=== PATIENT | female | born 1945 | race Caucasian/White ===

== ENCOUNTER → 2017-04-09 16:11 | Outpatient (CLI) | payer MEDICARE, MEDICAID ==
[2015-03-10 15:51] VITALS: BMI 21.5
[~2017-04-09 16:11] MED LIST: BAYER CHEWABLE81 MG PO; BETAPACE 80 MG80 MG PO; CEFTIN500 MG PO; GLUCOPHAGE500 MG PO; HYDROCHLOROTHIA25 MG PO; STERAPRED DS 1010 MG PO; ZESTRIL10 MG PO; ZOFRAN4 MG PO
== END ==
LOC: D.LABREF 16:11
DX: R82.90 Unspecified abnormal findings in urine (principal)

== ENCOUNTER → 2017-04-21 14:50 | Outpatient (CLI) | payer MEDICARE ==
[2015-03-10 15:51] VITALS: BMI 21.5
== END | disposition home or self-care (01) ==
LOC: D.CT 14:50
DX: R31.9 Hematuria, unspecified (principal); F17.200 Nicotine dependence, unspecified, uncomplicated

== ENCOUNTER 2017-04-28 05:30 | Day surgery (SDC) | payer MEDICARE ==
[2015-03-10 15:51] VITALS: Ht 167.6 cm; Wt 64.0 kg
[2017-04-25 16:26] LABS: HEMATOCRIT 37.4 % (36.0-48.0); HEMOGLOBIN 12.4 g/dL (12-16); MCH 30.6 pg (26.0-34.0); MCHC 33.2 g/dL (31.0-37.0); MCV 92.3 fL (80.0-100.0); MEAN PLATELET VOLUME 10.4 fL (7.4-10.4); RBC 4.05 10x6/uL (4.00-5.40); RDW 13.2 % (11.5-14.5); WBC 7.5 10x3/uL (4.8-10.8)
[2017-04-25 16:42] LABS: ANION GAP 13.4 mmol/L (8-16); CALCIUM 8.7 mg/dL (8.5-10.1); CARBON DIOXIDE 27.5 mmol/L (21.0-32.0); POTASSIUM - SERUM 3.9 mmol/L (3.5-5.1)
[~2017-04-28] VITALS: Ht 167.6 cm; Wt 64.0 kg
[~2017-04-28 05:30] MED LIST changes: +CYMBALTA20 MG PO; +HYDROCODONE-APA1 TAB PO; +NORVASC2.5 MG PO
[2017-04-28] MEDS ORDERED: MOTRIN PM CAPL1 EACH PO (06:29)
[2017-04-28 06:30] VITALS: BP 149/72; BMI 22.8
--- NOTE | 2017-04-28 09:28 | NUR ---
0815-RECD TO ROOM, ALERT. IV PATENT. DR SARGENT HERE TO REPORT TO PATIENT AND DAUGHTER. 0820-FULL LIQUIDS SERVED. 0845-IV D/C. VOIDED AND DRESSED, 0850-DISCHARGE INSTRUCTIONS REVIEWED. 0900-D/C HOME.
--- NOTE | 2017-04-29 12:46 | OP ---
PATIENT NAME: ALEX ROSENBAUM MEDICAL RECORD: [id number] :47 LOCATION:D.OPS ADMISSION DATE: SURGEON: WADE SARGENT MD DATE OF OPERATION: 04/28/2017 SURGEON: Wade Sargent MD ANESTHESIA: MAC by Gee Moy CRNA. PREOPERATIVE DIAGNOSES: Microhematuria, stress urinary incontinence, anxiety. FINDINGS: Single ureteral orifices, inflammation of the bladder trigone, no bladder tumors. Trabeculated bladder. Urethral mucosal prolapse. PROCEDURE: Cystoscopy. SPECIMENS: None. ESTIMATED BLOOD LOSS: None. CLINICAL HISTORY: This is a 71-year-old female, who has been smoking 1 pack per day since age 18. She was found by her family physician to have microhematuria. She had a CT scan, which showed normal kidneys with no hydronephrosis and no renal masses. There are no stones in the kidney either. There is a significant amount of gallstones in the gallbladder, which may be calcified. She is tender in the right upper quadrant also. She was also found on physical examination to have stress urinary incontinence. She is 5, P4, A1. She comes now to have cystoscopy done. She did not wish to have that done in the office as she has anxiety and she did not wish to feel the procedure being done. 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 DESCRIPTION OF PROCEDURE: The patient was given IV sedation. She was placed in the dorsal lithotomy position and prepped and draped. A 30-degree lens was used with a 21-Turkish cystoscope. Going into the bladder, she has a urethral mucosal prolapse. This was mild. She has single ureteral orifices. There is significant degree of inflammation in the trigone. No bladder tumors were seen. The bladder was mildly trabeculated. The bladder was then emptied and the patient was brought to the recovery room. TRANSINT:[id number] Voice Confirmation ID: [id number] DOCUMENT ID: [id number] WADE SARGENT MD at 1246 CC: [id number] DICTATION DATE: 04/28/17 0824 MANAGER PAPER: 04/28/17 1643 [facility] 04/28/17 [place] [address]
== END 2017-04-28 09:00 | disposition home or self-care (01) ==
LOC: D.OPS 05:30 → D.PAN 07:30 → D.OPS 09:00
PROVIDERS: Anesthesiology
DX: N39.3 Stress incontinence (female) (male) (principal); R31.29 Other microscopic hematuria; N32.89 Other specified disorders of bladder; N81.0 Urethrocele; N30.31 Trigonitis with hematuria; F41.9 Anxiety disorder, unspecified; K80.20 Calculus of gallbladder without cholecystitis without obstruction; F17.210 Nicotine dependence, cigarettes, uncomplicated; Z01.812 Encounter for preprocedural laboratory examination

== ENCOUNTER 2017-05-21 05:59 | Day surgery (SDC) | payer MEDICARE ==
[2017-05-19 10:03] LABS: HEMATOCRIT 36.2 % (36.0-48.0); MCH 30.6 pg (26.0-34.0); MCHC 33.1 g/dL (31.0-37.0); MCV 92.3 fL (80.0-100.0); MEAN PLATELET VOLUME 10.8 fL (7.4-10.4); RBC 3.92 10x6/uL (4.00-5.40); RDW 13.5 % (11.5-14.5); WBC 6.3 10x3/uL (4.8-10.8)
[2017-05-19 10:32] LABS: CALC OSMOLALITY 274 mosm/kg (275-300); CALCIUM 8.9 mg/dL (8.5-10.1); CARBON DIOXIDE 26.7 mmol/L (21.0-32.0); CHLORIDE - SERUM 103 mmol/L (98-107); CREATININE - SERUM 0.8 mg/dL (0.6-1.3); GLUCOSE 119 mg/dL (74-106); POTASSIUM - SERUM 4.4 mmol/L (3.5-5.1); SODIUM 138 mmol/L (136-145); UREA NITROGEN 7 mg/dL (7-18); eGFR NON AFRICAN AMERICAN 75 mL/min (90-120)
[~2017-05-21] VITALS: Ht 167.6 cm; Wt 65.8 kg
[~2017-05-21 05:59] MED LIST changes: +MOTRIN PM CAPL1 EACH PO
[2017-05-21 08:26] VITALS: BP 155/56; Ht 167.6 cm; Wt 65.8 kg
[2017-05-21] MEDS ORDERED: OXYCODONE HCL5 MG PO (12:30)
== END 2017-05-21 14:48 | disposition home or self-care (01) ==
LOC: D.OPS 05:59 → D.PAN 09:00 → D.OPS 09:10 → D.PAN 05-26 09:45
PROVIDERS: Anesthesiology
DX: K80.20 Calculus of gallbladder without cholecystitis without obstruction (principal); I10 Essential (primary) hypertension; E11.9 Type 2 diabetes mellitus without complications; F17.200 Nicotine dependence, unspecified, uncomplicated; Z99.81 Dependence on supplemental oxygen; Z01.812 Encounter for preprocedural laboratory examination

== ENCOUNTER 2018-04-08 13:06 | Inpatient (IN) | payer MEDICARE, MEDICAID ==
[~2018-04-08] VITALS: Ht 167.6 cm; Wt 57.1 kg
--- NOTE | ~2018-04-08 | CN ---
PATIENT NAME:ALEX RIDDLE MEDICAL RECORD: [id number] : 47 LOCATION:D. D.2137 ADMIT DATE: 04/09/18 ACCOUNT: [id number] CONSULTING PHYSICIAN: SEAN WARD MD REFERRING PHYSICIAN: FLOR ROBERT MD DATE OF CONSULTATION: CONSULT REQUESTING PHYSICIAN: Jack Adrian MD REASON FOR CONSULTATION: Pulmonary nodule. HISTORY OF PRESENT ILLNESS: Ms. Riddle is a 72-year-old female. She was smoking just until last week with a history of COPD and chronic hypoxic respiratory failure. The patient was sent to the hospital for generalized lethargy and weakness. She found out to be hyponatremic as well as chest radiograph showed some pulmonary nodules confirmed by the CTA of the chest. She was also having loss of appetite and occasional vomiting and diarrhea. REVIEW OF SYSTEMS: Mainly in the history of present illness. PAST MEDICAL HISTORY: 1. COPD. 2. Chronic hypoxic respiratory failure. 3. Hypertension. 4. Tobacco dependence syndrome. 5. Gastroesophageal reflux disease. 6. Coronary artery disease. PAST SURGICAL HISTORY: 1. CABG in 2008. 2. Oophorectomy. 3. History of cystoscopy. ALLERGIES: SHE IS ALLERGIC TO SULFA, TRIMETHOPRIM, AND TIZANIDINE. PRESENT MEDICATIONS: [employer] is reviewed. PERSONAL AND SOCIAL HISTORY: The patient was a smoker until last week, almost a pack a day. She is also drinking occasionally. FAMILY HISTORY: Noncontributory. PHYSICAL EXAMINATION: GENERAL: Now, the patient is lying comfortably, but she is not in acute respiratory distress. VITAL SIGNS: The blood pressure is 167/77, pulse is 88, respirations 20, temperature 98.1, SpO2 97% on 1 liter nasal cannula. HEENT: Conjunctivae are pink. Sclerae are not icteric. NECK: Supple, no JVD. CHEST: The chest excursion is minimal on both sides. There is wheeze on forceful expiration. No crackles. HEART: Rhythm regular, normal sound, no murmur. ABDOMEN: Soft, bowel sounds present. No hepatosplenomegaly. RECTAL: Deferred. EXTREMITIES: No cyanosis, no clubbing, no pedal edema. CONSULT REPORT [id number] ALEX RIDDLE SKIN: Warm, normal turgor. CENTRAL NERVOUS SYSTEM: The patient is awake and alert. There is no obvious cranial nerve abnormality. The gait was not tested. LABORATORY DATA: CBC: WBC 10.1, hemoglobin 12.2, hematocrit 34.7, the platelet count 260. Chemistry: Sodium 124 on admission, potassium 4.6, BUN is 6, and creatinine is 0.5. IMAGING: CTA of the chest: There was no pulmonary embolism. There is bilateral patchy pulmonary nodules. There are biapical pleural thickening. IMPRESSION: 1. Multiple pulmonary nodules, differential diagnoses include malignant versus infectious process versus sarcoidosis. 2. Chronic hypoxic respiratory failure. 3. Hyponatremia. 4. Tobacco dependence syndrome. 5. Gastroesophageal reflux disease. RECOMMENDATION: 1. Start on Brovana/budesonide nebulizer, albuterol/ipratropium nebulizer. 2. Nicotine patch if required. 3. Check for fungal serology, urine histoplasma antigen, S level, LUIS, rheumatoid factor, gold QuantiFERON test. The patient will need outpatient PET scan to rule out any malignant process. Dr. Adrian, thank you for involving me in the care of Ms. Riddle. TRANSINT:[id number] Voice Confirmation ID: [id number] DOCUMENT ID: [id number] SEAN WARD MD at 1806 CC: [id number] DICTATION DATE: 04/10/18 1615 DATABASE SUPPORT: 04/10/182102 [facility] 04/15/18 [address] [place] [address]
[~2018-04-08 13:06] MED LIST changes: +OXYCODONE HCL5 MG PO
[2018-04-08 16:18] LABS: BASOPHILS 0.1 % (0-2); EOSINOPHILS 0.4 % (0-7); HEMATOCRIT 37.4 % (36.0-48.0); HEMOGLOBIN 13.6 g/dL (12-16); IMMATURE GRANULOCYTES 0.3 % (0-5); LYMPHOCYTES 20.1 % (15-50); MCH 30.7 pg (26.0-34.0); MCHC 36.4 g/dL (31.0-37.0); MCV 84.4 fL (80.0-100.0); MEAN PLATELET VOLUME 9.8 fL (7.4-10.4); MONOCYTES 12.5 % (2-11); NEUTROPHILS 66.6 % (40-80); PLATELET COUNT 218 10x3/uL (130-400); RBC 4.43 10x6/uL (4.00-5.40); RDW 12.4 % (11.5-14.5); WBC 11.6 10x3/uL (4.8-10.8)
[2018-04-08 16:34] LABS: ALBUMIN 3.4 g/dL (3.4-5.0); ALKALINE PHOSPHATASE 59 U/L (46-116); ALT (SGPT) 14 U/L (10-68); CALC OSMOLALITY 249 mosm/kg (275-300); CALCIUM 9.1 mg/dL (8.5-10.1); CARBON DIOXIDE 28.6 mmol/L (21.0-32.0); CHLORIDE - SERUM 88 mmol/L (98-107); CREATININE - SERUM 0.7 mg/dL (0.6-1.3); GLUCOSE 131 mg/dL (74-106); MAGNESIUM - SERUM 1.6 mg/dL (1.8-2.4); POTASSIUM - SERUM 3.3 mmol/L (3.5-5.1); PROTEIN - SERUM 7.4 g/dL (6.4-8.2); SODIUM 124 mmol/L (136-145); UREA NITROGEN 7 mg/dL (7-18); eGFR NON AFRICAN AMERICAN 87 mL/min (90-120)
[2018-04-08 20:00] VITALS: BP 130/59
[2018-04-08 22:55] LABS: APPEARANCE CLEAR (CLEAR); BILIRUBIN NEGATIVE (NEGATIVE); COLOR YELLOW (YELLOW); GLUCOSE NEGATIVE (NEGATIVE); KETONE NEGATIVE (NEGATIVE); NITRITE NEGATIVE (NEGATIVE); PROTEIN NEGATIVE (NEGATIVE); UROBILINOGEN NORMAL (NORMAL)
[2018-04-09 00:41] LABS: CALC OSMOLALITY 256 mosm/kg (275-300); CALCIUM 8.4 mg/dL (8.5-10.1); CARBON DIOXIDE 30.5 mmol/L (21.0-32.0); CHLORIDE - SERUM 94 mmol/L (98-107); CREATININE - SERUM 0.6 mg/dL (0.6-1.3); GLUCOSE 101 mg/dL (74-106); POTASSIUM - SERUM 2.8 mmol/L (3.5-5.1); SODIUM 129 mmol/L (136-145); UREA NITROGEN 6 mg/dL (7-18); eGFR NON AFRICAN AMERICAN > 90 mL/min (90-120)
[2018-04-09 04:00] VITALS: BP 136/62
[2018-04-09 06:29] LABS: CALC OSMOLALITY 262 mosm/kg (275-300); CALCIUM 8.3 mg/dL (8.5-10.1); CARBON DIOXIDE 29.1 mmol/L (21.0-32.0); CHLORIDE - SERUM 96 mmol/L (98-107); CREATININE - SERUM 0.7 mg/dL (0.6-1.3); GLUCOSE 97 mg/dL (74-106); SODIUM 132 mmol/L (136-145); UREA NITROGEN 6 mg/dL (7-18); eGFR NON AFRICAN AMERICAN 87 mL/min (90-120)
[2018-04-09 06:30] LABS: POTASSIUM - SERUM 3.4 mmol/L (3.5-5.1)
[2018-04-09 08:35] VITALS: BP 125/61
[2018-04-09 11:42] VITALS: BP 115/50
[2018-04-09 20:00] VITALS: BP 132/55
[2018-04-10 01:51] VITALS: BP 152/59
[2018-04-10 02:54] VITALS: Ht 167.6 cm; Wt 57.1 kg
[2018-04-10 05:54] VITALS: BP 151/70
[2018-04-10 08:18] VITALS: BP 128/73
[2018-04-10 11:06] LABS: BASOPHILS 0.2 % (0-2); EOSINOPHILS 2.1 % (0-7); HEMATOCRIT 34.7 % (36.0-48.0); HEMOGLOBIN 12.2 g/dL (12-16); IMMATURE GRANULOCYTES 0.2 % (0-5); LYMPHOCYTES 22.5 % (15-50); MCH 30.8 pg (26.0-34.0); MCHC 35.2 g/dL (31.0-37.0); MEAN PLATELET VOLUME 10.4 fL (7.4-10.4); MONOCYTES 12.3 % (2-11); NEUTROPHILS 62.7 % (40-80); PLATELET COUNT 260 10x3/uL (130-400); RBC 3.96 10x6/uL (4.00-5.40); WBC 10.1 10x3/uL (4.8-10.8)
[2018-04-10 11:09] VITALS: BP 131/77
[2018-04-10 11:10] LABS: ALBUMIN 3.1 g/dL (3.4-5.0); ALKALINE PHOSPHATASE 53 U/L (46-116); ALT (SGPT) 15 U/L (10-68); BILIRUBIN - TOTAL 0.53 mg/dL (0.2-1.3); CALC OSMOLALITY 264 mosm/kg (275-300); CALCIUM 8.9 mg/dL (8.5-10.1); CHLORIDE - SERUM 97 mmol/L (98-107); GLUCOSE 127 mg/dL (74-106); MCV 87.6 fL (80.0-100.0); POTASSIUM - SERUM 4.6 mmol/L (3.5-5.1); PROTEIN - SERUM 6.4 g/dL (6.4-8.2); SODIUM 132 mmol/L (136-145); UREA NITROGEN 6 mg/dL (7-18)
[2018-04-10 11:14] LABS: CREATININE - SERUM 0.5 mg/dL (0.6-1.3); eGFR NON AFRICAN AMERICAN > 90 mL/min (90-120)
[2018-04-10 16:03] VITALS: BP 167/77
[2018-04-10 20:22] VITALS: BP 162/72
[2018-04-11 01:50] VITALS: BP 163/701
[2018-04-11 05:25] VITALS: BP 141/76
[2018-04-11 05:57] LABS: BASOPHILS 0.2 % (0-2); EOSINOPHILS 3.1 % (0-7); HEMATOCRIT 33.9 % (36.0-48.0); HEMOGLOBIN 11.9 g/dL (12-16); IMMATURE GRANULOCYTES 0.2 % (0-5); LYMPHOCYTES 22.1 % (15-50); MCH 30.1 pg (26.0-34.0); MCHC 35.1 g/dL (31.0-37.0); MEAN PLATELET VOLUME 9.9 fL (7.4-10.4); MONOCYTES 13.2 % (2-11); NEUTROPHILS 61.2 % (40-80); PLATELET COUNT 260 10x3/uL (130-400); RBC 3.96 10x6/uL (4.00-5.40); RDW 12.6 % (11.5-14.5); WBC 9.6 10x3/uL (4.8-10.8)
[2018-04-11 06:06] LABS: MCV 85.6 fL (80.0-100.0)
[2018-04-11 06:12] LABS: CALC OSMOLALITY 249 mosm/kg (275-300); CALCIUM 8.5 mg/dL (8.5-10.1); CARBON DIOXIDE 27.4 mmol/L (21.0-32.0); CHLORIDE - SERUM 91 mmol/L (98-107); CREATININE - SERUM 0.5 mg/dL (0.6-1.3); GLUCOSE 104 mg/dL (74-106); POTASSIUM - SERUM 4.7 mmol/L (3.5-5.1); SODIUM 125 mmol/L (136-145); eGFR NON AFRICAN AMERICAN > 90 mL/min (90-120)
[2018-04-11 06:15] LABS: UREA NITROGEN 8 mg/dL (7-18)
[2018-04-11 08:35] VITALS: BP 155/74
[2018-04-11 12:00] VITALS: BP 120/57
[2018-04-11 17:02] VITALS: BP 151/67
[2018-04-11 20:50] VITALS: BP 139/69
[2018-04-12 01:31] VITALS: BP 123/59
[2018-04-12 05:41] VITALS: BP 153/71
[2018-04-12 06:44] LABS: BASOPHILS 0.3 % (0-2); EOSINOPHILS 2.4 % (0-7); HEMATOCRIT 35.3 % (36.0-48.0); HEMOGLOBIN 12.6 g/dL (12-16); IMMATURE GRANULOCYTES 0.3 % (0-5); LYMPHOCYTES 21.4 % (15-50); MCH 30.3 pg (26.0-34.0); MCHC 35.7 g/dL (31.0-37.0); MCV 84.9 fL (80.0-100.0); MEAN PLATELET VOLUME 9.4 fL (7.4-10.4); MONOCYTES 16.9 % (2-11); NEUTROPHILS 58.7 % (40-80); PLATELET COUNT 261 10x3/uL (130-400); RBC 4.16 10x6/uL (4.00-5.40); RDW 12.7 % (11.5-14.5); WBC 10.7 10x3/uL (4.8-10.8)
[2018-04-12 06:54] LABS: CALC OSMOLALITY 243 mosm/kg (275-300); CALCIUM 8.8 mg/dL (8.5-10.1); CARBON DIOXIDE 25.7 mmol/L (21.0-32.0); CHLORIDE - SERUM 89 mmol/L (98-107); CREATININE - SERUM 0.6 mg/dL (0.6-1.3); GLUCOSE 115 mg/dL (74-106); POTASSIUM - SERUM 4.3 mmol/L (3.5-5.1); SODIUM 121 mmol/L (136-145); UREA NITROGEN 10 mg/dL (7-18); eGFR NON AFRICAN AMERICAN > 90 mL/min (90-120)
[2018-04-12 09:09] VITALS: BP 158/67
[2018-04-12 12:00] VITALS: BP 152/59
[2018-04-12 17:23] VITALS: BP 122/61
[2018-04-12 22:05] VITALS: BP 135/63
[2018-04-13 02:28] VITALS: BP 135/65
[2018-04-13 05:22] VITALS: BP 150/67
[2018-04-13 07:16] LABS: BASOPHILS 0.2 % (0-2); EOSINOPHILS 1.9 % (0-7); HEMATOCRIT 34.4 % (36.0-48.0); HEMOGLOBIN 12.3 g/dL (12-16); IMMATURE GRANULOCYTES 0.3 % (0-5); MCH 30.2 pg (26.0-34.0); MCHC 35.8 g/dL (31.0-37.0); MCV 84.5 fL (80.0-100.0); MEAN PLATELET VOLUME 9.8 fL (7.4-10.4); NEUTROPHILS 61.6 % (40-80); PLATELET COUNT 284 10x3/uL (130-400); RBC 4.07 10x6/uL (4.00-5.40); RDW 12.4 % (11.5-14.5)
[2018-04-13 07:28] LABS: CALC OSMOLALITY 238 mosm/kg (275-300); CALCIUM 8.8 mg/dL (8.5-10.1); CARBON DIOXIDE 26.4 mmol/L (21.0-32.0); CHLORIDE - SERUM 87 mmol/L (98-107); CREATININE - SERUM 0.5 mg/dL (0.6-1.3); GLUCOSE 113 mg/dL (74-106); POTASSIUM - SERUM 4.3 mmol/L (3.5-5.1); UREA NITROGEN 8 mg/dL (7-18); eGFR NON AFRICAN AMERICAN > 90 mL/min (90-120)
[2018-04-13 07:31] LABS: SODIUM 119 mmol/L (136-145)
[2018-04-13 08:20] VITALS: BP 168/95
[2018-04-13 11:24] VITALS: BP 113/60
[2018-04-13 16:10] VITALS: BP 116/71
[2018-04-13 20:00] VITALS: BP 131/58
[2018-04-14 06:52] LABS: HEMATOCRIT 32.2 % (36.0-48.0); HEMOGLOBIN 11.5 g/dL (12-16); MCH 30.7 pg (26.0-34.0); MCHC 35.7 g/dL (31.0-37.0); MCV 86.1 fL (80.0-100.0); MEAN PLATELET VOLUME 9.7 fL (7.4-10.4); PLATELET COUNT 264 10x3/uL (130-400); RBC 3.74 10x6/uL (4.00-5.40); RDW 12.6 % (11.5-14.5); WBC 8.3 10x3/uL (4.8-10.8)
[2018-04-14 07:05] LABS: CALC OSMOLALITY 255 mosm/kg (275-300); CALCIUM 8.8 mg/dL (8.5-10.1); CARBON DIOXIDE 26.9 mmol/L (21.0-32.0); CHLORIDE - SERUM 94 mmol/L (98-107); CREATININE - SERUM 0.6 mg/dL (0.6-1.3); GLUCOSE 92 mg/dL (74-106); POTASSIUM - SERUM 3.9 mmol/L (3.5-5.1); SODIUM 128 mmol/L (136-145); UREA NITROGEN 10 mg/dL (7-18); eGFR NON AFRICAN AMERICAN > 90 mL/min (90-120)
[2018-04-14 08:18] LABS: EOSINOPHILS 2 % (0-7); LYMPHOCYTES 20 % (15-50); MONOCYTES 22 % (2-11); NEUTROPHILS 54 % (40-80); PLATELET ESTIMATE NORMAL
[2018-04-14 08:35] VITALS: BP 139/75
[2018-04-14 10:12] LABS: ANGIOTENSIN CONVERTING ENZYME 43 U/L (14-82)
[2018-04-14 12:02] VITALS: BP 146/79
[2018-04-14 12:11] LABS: ANA REFLEX - DIRECT Negative (Negative)
[2018-04-14 15:20] LABS: ANCA - ANTIMYELOPEROXIDASE <9.0 U/mL (0.0-9.0); ANCA - ANTIPROTEINASE 3 <3.5 U/mL (0.0-3.5); ANCA - ATYPICAL <1:20 titer (Neg:<1:20); ANCA - CYTOPLASMIC <1:20 titer (Neg:<1:20); ANCA - PERINUCLEAR <1:20 titer (Neg:<1:20)
[2018-04-14 16:12] VITALS: BP 104/41
[2018-04-14 20:00] VITALS: BP 143/62
[2018-04-15] VITALS: BP 150/58
[2018-04-15 06:18] LABS: BASOPHILS 0.4 % (0-2); EOSINOPHILS 1.4 % (0-7); HEMATOCRIT 29.5 % (36.0-48.0); HEMOGLOBIN 10.2 g/dL (12-16); IMMATURE GRANULOCYTES 0.2 % (0-5); MCH 30.3 pg (26.0-34.0); MCHC 34.6 g/dL (31.0-37.0); MCV 87.5 fL (80.0-100.0); MEAN PLATELET VOLUME 9.4 fL (7.4-10.4); MONOCYTES 18.5 % (2-11); NEUTROPHILS 54.5 % (40-80); PLATELET COUNT 280 10x3/uL (130-400); RBC 3.37 10x6/uL (4.00-5.40); RDW 12.7 % (11.5-14.5); WBC 8.3 10x3/uL (4.8-10.8)
[2018-04-15 06:39] LABS: CALC OSMOLALITY 263 mosm/kg (275-300); CALCIUM 8.4 mg/dL (8.5-10.1); CARBON DIOXIDE 28.6 mmol/L (21.0-32.0); CHLORIDE - SERUM 97 mmol/L (98-107); CREATININE - SERUM 0.6 mg/dL (0.6-1.3); GLUCOSE 93 mg/dL (74-106); POTASSIUM - SERUM 3.6 mmol/L (3.5-5.1); SODIUM 132 mmol/L (136-145); UREA NITROGEN 10 mg/dL (7-18); eGFR NON AFRICAN AMERICAN > 90 mL/min (90-120)
[2018-04-15 08:22] VITALS: BP 110/75
[2018-04-15 12:09] VITALS: BP 101/42
[2018-04-15] MEDS ORDERED: THERMOTABS 1 GM1 GM PO (14:23)
[2018-04-15 16:16] VITALS: BP 135/59
[2018-04-16 18:10] LABS: FUNGAL - ASP FLAVUS Negative (Neg:<1:1); FUNGAL - ASP NIGER Negative (Neg:<1:1); FUNGAL - ASPER FUMIGATUS Negative (Neg:<1:1)
== END 2018-04-15 18:59 | disposition home or self-care (01) | DRG 640 ==
LOC: D.SDCHOLD 13:06 → D.M2 13:06 → OBSVTIME 13:06 → D.M2 13:06
PROVIDERS: Family Medicine; Internal Medicine Nephrology; Internal Medicine Pulmonary Disease
DX: E87.1 Hypo-osmolality and hyponatremia (principal); J18.9 Pneumonia, unspecified organism; I26.90 Septic pulmonary embolism without acute cor pulmonale; J44.1 Chronic obstructive pulmonary disease with (acute) exacerbation; J96.11 Chronic respiratory failure with hypoxia; C34.92 Malignant neoplasm of unspecified part of left bronchus or lung; C34.91 Malignant neoplasm of unspecified part of right bronchus or lung; E86.0 Dehydration; E87.6 Hypokalemia; F17.200 Nicotine dependence, unspecified, uncomplicated; E78.5 Hyperlipidemia, unspecified; E11.9 Type 2 diabetes mellitus without complications; I25.10 Atherosclerotic heart disease of native coronary artery without angina pectoris; K21.9 Gastro-esophageal reflux disease without esophagitis; I10 Essential (primary) hypertension; Z95.1 Presence of aortocoronary bypass graft

== ENCOUNTER → 2018-05-28 16:36 | Outpatient (CLI) | payer MEDICARE, MEDICAID ==
[~2018-05-28 16:36] MED LIST changes: +THERMOTABS 1 GM1 GM PO
== END | disposition home or self-care (01) ==
LOC: D.CT 10:00
DX: M25.511 Pain in right shoulder (principal)

== ENCOUNTER → 2018-08-20 13:58 | Outpatient (CLI) | payer MEDICARE, MEDICAID | END | disposition home or self-care (01) | LOC: D.RT 13:58 | DX: J44.9 Chronic obstructive pulmonary disease, unspecified (principal); R91.8 Other nonspecific abnormal finding of lung field ==

== ENCOUNTER → 2018-11-24 22:26 | Outpatient (CLI) | payer MEDICARE, MEDICAID | END | disposition home or self-care (01) | LOC: D.MAMMO 09-28 16:15 | DX: Z12.31 Encounter for screening mammogram for malignant neoplasm of breast (principal) ==

== ENCOUNTER 2019-05-28 16:57 | Observation (INO) | payer MEDICARE, MEDICAID ==
[~2019-05-28] VITALS: Ht 167.6 cm; Wt 60.3 kg
--- NOTE | 2019-05-28 17:27 | NUR ---
RCVD PT FROM OFFICE. ALERT AND ORIENTED. UP AD EARLE. NO C/O PAIN. NO S/S OF ACUTE DISTRESS NOTED. PT DENIES ANYTHING FURTHER. WILL CONTINUE TO MONITOR.
[2019-05-28 17:31] VITALS: BP 115/61
[2019-05-28 17:37] VITALS: BP 115/61; BMI 21.5
[2019-05-28 20:00] VITALS: BP 104/41
--- NOTE | 2019-05-28 22:00 | NUR ---
A&O, REPORTS PAIN IN BACK AND SHOULDER. 06/26. REPORTS SHE ALREADY FEELS BETTER AND THAT HER APPETITE HAS INCREASED SINCE BEING ADMITTED TO HOSPITAL. FSBS 173. WILL CONTINUE TO MONITOR.
[2019-05-28 23:38] LABS: APPEARANCE CLEAR (CLEAR); BILIRUBIN NEGATIVE (NEGATIVE); COLOR YELLOW (YELLOW); GLUCOSE NEGATIVE (NEGATIVE); KETONE NEGATIVE (NEGATIVE); NITRITE NEGATIVE (NEGATIVE); PROTEIN NEGATIVE (NEGATIVE); SPECIFIC GRAVITY 1.015 (1.005-1.020); UROBILINOGEN NORMAL (NORMAL)
[2019-05-29] VITALS: BP 95/44
--- NOTE | 2019-05-29 03:00 | NUR ---
I have reviewed this patient and I concur with the Shift Assessment completed by the Licensed Practical Nurse today this shift.
[2019-05-29 07:46] LABS: ALBUMIN 2.2 g/dL (3.4-5.0); ALKALINE PHOSPHATASE 63 U/L (46-116); ALT (SGPT) 29 U/L (10-68); BILIRUBIN - TOTAL 0.55 mg/dL (0.2-1.3); CALC OSMOLALITY 250 mosm/kg (275-300); CALCIUM 7.9 mg/dL (8.5-10.1); CARBON DIOXIDE 26.9 mmol/L (21.0-32.0); CHLORIDE - SERUM 91 mmol/L (98-107); CREATININE - SERUM 0.7 mg/dL (0.6-1.3); GLUCOSE 105 mg/dL (74-106); HEMATOCRIT 29.9 % (36.0-48.0); HEMOGLOBIN 10.5 g/dL (12-16); MAGNESIUM - SERUM 1.9 mg/dL (1.8-2.4); MCH 29.5 pg (26.0-34.0); MCHC 35.1 g/dL (31.0-37.0); PHOSPHOROUS 3.6 mg/dL (2.5-4.9); PLATELET COUNT 302 10x3/uL (130-400); POTASSIUM - SERUM 3.8 mmol/L (3.5-5.1); PROTEIN - SERUM 5.6 g/dL (6.4-8.2); RBC 3.56 10x6/uL (4.00-5.40); RDW 12.9 % (11.5-14.5); SODIUM 124 mmol/L (136-145); UREA NITROGEN 16 mg/dL (7-18); WBC 12.1 10x3/uL (4.8-10.8); eGFR NON AFRICAN AMERICAN 87 mL/min (90-120)
[2019-05-29 08:13] LABS: EOSINOPHILS 2 % (0-7); LYMPHOCYTES 34 % (15-50); MONOCYTES 8 % (2-11); NEUTROPHILS 53 % (40-80); PLATELET ESTIMATE NORMAL
[2019-05-29 08:19] VITALS: Ht 167.6 cm; Wt 60.3 kg
--- NOTE | 2019-05-29 08:20 | NUR ---
PT RESTING EYES CLOSED NO SIGNS OF DISTRESS NOTED, EASY RISE AND FALL OF CHEST WILL CONTINUE TO MONITOR CL IN REACH
[2019-05-29 08:26] VITALS: BP 120/53
[2019-05-29 12:46] VITALS: BP 101/41
--- NOTE | 2019-05-29 17:02 | NUR ---
I have reviewed this patient and I concur with the Shift Assessment completed by the Licensed Practical Nurse today this shift.
[2019-05-29 17:52] VITALS: BP 109/45
--- NOTE | 2019-05-29 19:30 | NUR ---
PT ALERT AND ORIENTED. UP WITH HEAD OF BED AT 40 DEGREE ANGLE. ROOM AIR AND O2 SAUTRATION 100%. PATIENT IS HARD OF HEARING. DENIES PAIN OR DISCOMFORT. RIGHT WRIST IV THAT FLUSHES WELL AND IS PATENT. INFUSING NS @ 100. HAS CALL LIGHT IN HAND. USES APPROPRIATELY. CPOC.
[2019-05-29 20:00] VITALS: BP 115/60
--- NOTE | 2019-05-30 02:55 | NUR ---
I have reviewed this patient and I concur with the Shift Assessment completed by the Licensed Practical Nurse today this shift.
[2019-05-30 04:00] VITALS: BP 107/75
--- NOTE | 2019-05-30 06:09 | NUR ---
PT ANGRY AND IRRITABLE. COMPLETE CHANGE FROM BEGINNING OF SHIFT. PT YELLING AND LOUD STATING THAT SHE DOESNT WANT ANYMORE MEDICINE AND SHE WANTS TO GO HOME. SHE SAID SHE DOESN'T HAVE PNEUMONIA ANYMORE AND THAT WHEN SHE DID THE FOOD ORDER DELIVERY RUNNER DIDN'T TREAT HER. STATED "THE NURSE PRACTITIONER SENT ME HOME FOR A WEEK AND I FELT LIKE I WAS DYING AND WISHED I WOULD !." PT CONTINUED TO GROW ANGRY AND UPSET. CALMED PATIENT DOWN AND TOLD HER TO JUST FINISH THE ROUND OF ANTIBIOTICS AND PATIENT STATED "IF YOU THINK IM STAYING HERE YOURE JUST BAD HER IM NOT FINISHING THESE DAMN THINGS." ATTEMPTED TO TRY TO CALM PATIENT DOWN AGAIN.
[2019-05-30 06:59] LABS: CALC OSMOLALITY 265 mosm/kg (275-300); CALCIUM 7.7 mg/dL (8.5-10.1); CARBON DIOXIDE 25.6 mmol/L (21.0-32.0); CHLORIDE - SERUM 99 mmol/L (98-107); CREATININE - SERUM 0.6 mg/dL (0.6-1.3); GLUCOSE 101 mg/dL (74-106); MAGNESIUM - SERUM 1.6 mg/dL (1.8-2.4); PHOSPHOROUS 3.3 mg/dL (2.5-4.9); POTASSIUM - SERUM 3.5 mmol/L (3.5-5.1); SODIUM 133 mmol/L (136-145); UREA NITROGEN 12 mg/dL (7-18); eGFR NON AFRICAN AMERICAN > 90 mL/min (90-120)
[2019-05-30 07:00] LABS: BASOPHILS 0.3 % (0-2); EOSINOPHILS 2.3 % (0-7); HEMATOCRIT 29.2 % (36.0-48.0); HEMOGLOBIN 10.2 g/dL (12-16); IMMATURE GRANULOCYTES 1.9 % (0-5); LYMPHOCYTES 17.8 % (15-50); MCH 29.8 pg (26.0-34.0); MCHC 34.9 g/dL (31.0-37.0); MCV 85.4 fL (80.0-100.0); MEAN PLATELET VOLUME 9.1 fL (7.4-10.4); MONOCYTES 19.9 % (2-11); NEUTROPHILS 57.8 % (40-80); PLATELET COUNT 313 10x3/uL (130-400); RBC 3.42 10x6/uL (4.00-5.40); RDW 13.4 % (11.5-14.5); WBC 10.6 10x3/uL (4.8-10.8)
--- NOTE | 2019-05-30 08:00 | NUR ---
PT RESING EYES CLOSED NO SIGNS OF DISTRESS NOTED, EASY RISE AND FALL OF CHEST WILL CONTINUE TO MONITOR CL IN REACH
[2019-05-30 09:10] VITALS: BP 144/58
--- NOTE | 2019-05-30 10:00 | NUR ---
SHADI WATKINS OFFERED PT A SHOWER AND PT STATES "IM NOT TAKING NO DAMN SHOWER NOT TODAY I DONT HAVE TO DO AND I DONT WANT TO" I EXPRESSED TO THE PT THAT IT WAS PART OF THE NITRO MAN'S JOB TO OFFER HER A SHOWER AND SHE DOES HAVE THE RIGHT TO REFUSE THE SHOWER THE NITRO MAN WAS ONLY DOING HER JOB
[2019-05-30 12:12] VITALS: BP 113/42
[2019-05-30] MEDS ORDERED: MUCINEX600 MG PO (12:40)
[2019-05-30] MEDS ORDERED: TESSALON PERLE100 MG PO (12:40)
[2019-05-30] MEDS ORDERED: PROTONIX40 MG PO (12:40)
[2019-05-30] MEDS ORDERED: ZITHROMAX500 MG PO (12:41)
[2019-05-30] MEDS ORDERED: OMNICEF300 MG PO (12:42)
--- NOTE | 2019-05-30 14:05 | NUR ---
IV DC WITH CATH INTACT, DC INSTUCTIONS GIVEN PT VERBALIZES UNDERSTANDING, WAITING ON HER DAUGHTER TO COME PICK HER UP
--- NOTE | 2019-05-30 14:49 | NUR ---
PT LEAVING AT THIS TIME WITH HER DAUGHTER OFFERED A WHEELCHAIR AND THE PATINET REFUSED IT STATES SHE CAN WALK TO THE FRONT
== END 2019-05-30 15:31 | disposition home or self-care (01) ==
LOC: D.MS 16:57 → OBSVTIME 16:59 → D.MS 05-30 15:31
PROVIDERS: Family Medicine Adult Medicine; ADMIT Family Medicine; ATTEND Family Medicine
DX: J18.9 Pneumonia, unspecified organism (principal); K21.9 Gastro-esophageal reflux disease without esophagitis; Z95.1 Presence of aortocoronary bypass graft; I10 Essential (primary) hypertension; M19.90 Unspecified osteoarthritis, unspecified site; I25.10 Atherosclerotic heart disease of native coronary artery without angina pectoris; D64.9 Anemia, unspecified; J96.21 Acute and chronic respiratory failure with hypoxia; J44.1 Chronic obstructive pulmonary disease with (acute) exacerbation; J44.0 Chronic obstructive pulmonary disease with (acute) lower respiratory infection; E87.1 Hypo-osmolality and hyponatremia; E44.0 Moderate protein-calorie malnutrition

== ENCOUNTER 2021-03-07 13:10 | Outpatient (CLI) | payer MEDICARE, MEDICAID ==
[2019-05-29 08:19] VITALS: BMI 21.4
[~2021-03-07 13:10] MED LIST changes: +MUCINEX600 MG PO; +OMNICEF300 MG PO; +PROTONIX40 MG PO; +TESSALON PERLE100 MG PO; +ZITHROMAX500 MG PO
== END 2021-03-07 23:59 | disposition home or self-care (01) ==
LOC: D.MAMMO 13:10
PROVIDERS: ATTEND Family Medicine
DX: N64.52 Nipple discharge (principal)